=== PATIENT | female | born 1995 | race Caucasian/White ===

== ENCOUNTER 2021-04-05 11:11 | Observation (INO) ==
[2021-04-05] MEDS ORDERED: Famotidine 20 MG/2 ML VIAL IVP ONE (11:30)
[2021-04-05 12:05] LABS: Basophils % 0.2 %; Eosinophils # 0.3 K/mcL (0.0-0.6); Eosinophils % 2.6 %; Hematocrit 35.1 % (35.3-44.9); Hemoglobin 11.7 g/dL (11.5-15.4); Immature Granulocytes % 0.2 % (0-4); Lymphocytes # 1.5 K/mcL (0.6-4.6); Lymphocytes % 15.5 %; Mean Corpuscular HGB Conc 33.3 g/dL (31.6-35.5); Mean Corpuscular Hemoglobin 28.9 pg (28.0-33.3); Mean Corpuscular Volume 86.7 fL (83.0-100.0); Mean Platelet Volume 12.1 fL (9.4-12.4); Monocytes # 0.8 K/mcL (0.0-1.3); Neutrophils # 7.1 K/mcL (1.6-8.9); Platelet Count 163 K/mcL (140-400); Red Blood Count 4.05 M/mcL (3.82-4.97); Red Cell Distribution Width 13.1 % (11.5-14.5); Segmented Neutrophils % 73.5 %; White Blood Count 9.7 K/mcL (4.3-11.1)
[2021-04-05 12:14] LABS: Protein/Creatinine Ratio,Urine 0.11 mg/mg (0.00-0.20)
[2021-04-05 12:25] LABS: Alanine Aminotransferase 12 Units/L (7-52); Amylase 41 Units/L (29-103); Aspartate Amino Transferase 13 Units/L (13-39); BUN/Creatinine Ratio 12 (6-26); Blood Urea Nitrogen 7 mg/dL (6-20); Lactate Dehydrogenase 118 Units/L (140-271); Lipase 15 Units/L (11-82); Uric Acid 4.4 mg/dL (2.3-7.6); eGFR For African Americans > 60 (> 60); eGFR For Non-African Americans > 60 (> 60)
== END 2021-04-05 12:55 | disposition home or self-care (01) ==
LOC: 1NENULAB
PROVIDERS: ADMIT Advanced Practice Midwife; ATTEND Advanced Practice Midwife

== ENCOUNTER 2021-05-19 16:02 | Observation (INO) ==
[2021-05-19 18:25] LABS: Bilirubin,Urine Negative (Negative); Blood,Urine Negative (Negative); Clarity,Urine Clear (Clear); Color,Urine Light-Yellow (Yellow); Glucose,Urine (UA) Normal (Normal); Ketones,Urine Negative (Negative); Leukocyte Esterase,Urine Trace (Negative); Nitrite,Urine Negative (Negative); PH,Urine 7.5 pH Units (5.0-8.0); Protein,Urine Negative (Neg-Trace); Specific Gravity,Urine 1.018 (1.010-1.025); Urobilinogen,Urine Normal (Normal)
== END 2021-05-19 17:50 | disposition home or self-care (01) ==
LOC: 1NENULAB
PROVIDERS: ADMIT Obstetrics & Gynecology; ATTEND Obstetrics & Gynecology

== ENCOUNTER → 2021-06-22 02:50 | Observation (INO) ==
[2021-06-22 00:50] LABS: Bacteria,Urine Few per hpf (None-Few); Bilirubin,Urine Negative (Negative); Blood,Urine Negative (Negative); Clarity,Urine Clear (Clear); Color,Urine Light-Yellow (Yellow); Glucose,Urine (UA) Normal (Normal); Ketones,Urine Negative (Negative); Leukocyte Esterase,Urine Moderate (Negative); Mucus,Urine Few per lpf (None-Few); Nitrite,Urine Negative (Negative); PH,Urine 6.5 pH Units (5.0-8.0); Protein,Urine Negative (Neg-Trace); RBC,Urine 0-3 per hpf (0-3); Specific Gravity,Urine 1.022 (1.010-1.025); Squamous Epithelial Cell,Urine Few per hpf (None-Few); Urobilinogen,Urine Normal (Normal)
== END | disposition home or self-care (01) ==
LOC: 1NENULAB
PROVIDERS: ADMIT Obstetrics & Gynecology; ATTEND Obstetrics & Gynecology

== ENCOUNTER 2021-06-22 16:04 | Observation (INO) ==
[2021-06-22 16:38] LABS: Bacteria,Urine Few per hpf (None-Few); Bilirubin,Urine Negative (Negative); Blood,Urine Negative (Negative); Clarity,Urine Turbid (Clear); Color,Urine Yellow (Yellow); Glucose,Urine (UA) Normal (Normal); Ketones,Urine Negative (Negative); Leukocyte Esterase,Urine Large (Negative); Mucus,Urine Few per lpf (None-Few); Nitrite,Urine Negative (Negative); PH,Urine 7.5 pH Units (5.0-8.0); Protein,Urine 50 mg/dL (Neg-Trace); Specific Gravity,Urine 1.028 (1.010-1.025); Squamous Epithelial Cell,Urine Many per hpf (None-Few); WBC,Urine 30-50 per hpf (0-3)
[2021-06-22] MEDS ORDERED: Ringers Solution, Lactated 1,000 ML IVC ONE (17:06)
[2021-06-22] MEDS ORDERED: *HR* Nalbuphine 10 MG/ML AMPUL IV STA (17:06)
[2021-06-22 18:38] LABS: Basophils % 0.3 %; Eosinophils # 0.1 K/mcL (0.0-0.6); Eosinophils % 1.4 %; Hematocrit 34.9 % (35.3-44.9); Hemoglobin 11.5 g/dL (11.5-15.4); Immature Granulocytes % 0.4 % (0-4); Immature Platelets 13.3 % (1.1-6.1); Lymphocytes # 1.5 K/mcL (0.6-4.6); Lymphocytes % 14.7 %; Mean Corpuscular Volume 81.9 fL (83.0-100.0); Mean Platelet Volume 13.1 fL (9.4-12.4); Monocytes # 0.8 K/mcL (0.0-1.3); Monocytes % 7.9 %; Neutrophils # 7.7 K/mcL (1.6-8.9); Platelet Count 143 K/mcL (140-400); Red Blood Count 4.26 M/mcL (3.82-4.97); Red Cell Distribution Width 13.8 % (11.5-14.5); Segmented Neutrophils % 75.3 %; White Blood Count 10.2 K/mcL (4.3-11.1)
== END 2021-06-22 19:06 | disposition home or self-care (01) ==
LOC: 1NENULAB
PROVIDERS: ADMIT Advanced Practice Midwife; ATTEND Advanced Practice Midwife

== ENCOUNTER 2021-06-26 00:42 | Observation (INO) ==
[2021-06-26 01:24] LABS: Bacteria,Urine Few per hpf (None-Few); Bilirubin,Urine Negative (Negative); Blood,Urine Negative (Negative); Clarity,Urine Clear (Clear); Color,Urine Light-Yellow (Yellow); Glucose,Urine (UA) Normal (Normal); Ketones,Urine Negative (Negative); Leukocyte Esterase,Urine Large (Negative); Mucus,Urine Few per lpf (None-Few); Nitrite,Urine Negative (Negative); Protein,Urine Trace mg/dL (Neg-Trace); RBC,Urine 0-3 per hpf (0-3); Specific Gravity,Urine 1.024 (1.010-1.025); Squamous Epithelial Cell,Urine Few per hpf (None-Few); Urobilinogen,Urine Normal (Normal); WBC,Urine 30-50 per hpf (0-3)
== END 2021-06-26 01:43 | disposition home or self-care (01) ==
LOC: 1NENULAB
PROVIDERS: ADMIT Student in an Organized Health Care Education/Training Program; ATTEND Student in an Organized Health Care Education/Training Program

== ENCOUNTER → 2021-06-27 18:42 | Observation (INO) | END | disposition home or self-care (01) | LOC: 1NENULAB | PROVIDERS: ADMIT Obstetrics & Gynecology; ATTEND Obstetrics & Gynecology ==

== ENCOUNTER → 2021-06-28 23:03 | Observation (INO) | END | disposition home or self-care (01) | LOC: 1NENULAB | PROVIDERS: ADMIT Registered Nurse; ATTEND Registered Nurse ==

== ENCOUNTER 2021-07-01 14:44 | Inpatient (IN) ==
[2021-07-01 11:23] LABS: Basophils % 0.3 %; Eosinophils # 0.2 K/mcL (0.0-0.6); Eosinophils % 1.3 %; Hematocrit 34.7 % (35.3-44.9); Hemoglobin 11.5 g/dL (11.5-15.4); Immature Granulocytes % 0.5 % (0-4); Lymphocytes # 1.5 K/mcL (0.6-4.6); Lymphocytes % 10.8 %; Mean Corpuscular HGB Conc 33.1 g/dL (31.6-35.5); Mean Corpuscular Hemoglobin 27.1 pg (28.0-33.3); Mean Corpuscular Volume 81.6 fL (83.0-100.0); Mean Platelet Volume 12.6 fL (9.4-12.4); Monocytes # 1.1 K/mcL (0.0-1.3); Monocytes % 7.9 %; Neutrophils # 10.8 K/mcL (1.6-8.9); Platelet Count 131 K/mcL (140-400); Red Blood Count 4.25 M/mcL (3.82-4.97); Red Cell Distribution Width 13.7 % (11.5-14.5); Segmented Neutrophils % 79.2 %; White Blood Count 13.6 K/mcL (4.3-11.1)
[2021-07-01 11:29] LABS: Amphetamine Screen,Urine Negative ng/mL (Cutoff=1000); Barbiturate Screen,Urine Negative ng/mL (Cutoff=200); Benzodiazepines Screen,Urine Negative ng/mL (Cutoff=200); Cannabinoid Screen,Urine Negative ng/mL (Cutoff = 50); Cocaine Screen,Urine Negative ng/mL (Cutoff= 300); Opiate Screen,Urine Negative ng/mL (Cutoff=300); Phencyclidine Screen,Urine Negative ng/mL (Cutoff=25)
[~2021-07-01 14:44] MED LIST: EPHEDrine 50 MG/ML VIAL IVP PRN; Epidural Premix (fent/bupiv) 110 ML EP SCH; Famotidine 20 MG/2 ML VIAL IVP PRN; Metoclopramide 10 MG/2 ML VIAL IVP PRN; Naloxone 0.4 MG/ML INJ IVP PRN; Ondansetron 4 MG/2 ML VIAL IVP PRN; Ringers Solution, Lactated 1,000 ML ONE
[2021-07-01] MEDS ORDERED: Ringers Solution, Lactated 1,000 ML ONE (15:04)
[2021-07-01] MEDS ORDERED: Lidocaine 1% 20 ML MDV INFILT PRN (15:17)
[2021-07-01] MEDS ORDERED: *HR* Nalbuphine 10 MG/ML AMPUL IV PRN (15:17)
[2021-07-01] MEDS ORDERED: Metoclopramide 10 MG/2 ML VIAL IVP PRN (15:17)
[2021-07-01] MEDS ORDERED: Famotidine 20 MG/2 ML VIAL IVP PRN (15:17)
[2021-07-01] MEDS ORDERED: Naloxone 0.4 MG/ML INJ IVP PRN (15:17)
[2021-07-01] MEDS ORDERED: Ringers Solution, Lactated 1,000 ML IVC SCH (15:30)
[2021-07-01] MEDS ORDERED: Oxytocin 20 units/ LR 1000 mL 20 UNIT/1,000 ML BAG IVC ONE (20:40)
[2021-07-02] MEDS ORDERED: Oxytocin 20 units/ LR 1000 mL 20 UNIT/1,000 ML BAG IVC SCH (00:27)
[2021-07-02] MEDS ORDERED: Ondansetron ODT 4 MG TAB.RAPDIS SL PRN (00:27)
[2021-07-02] MEDS ORDERED: Oxytocin 20 units/ LR 1000 mL 20 UNIT/1,000 ML BAG IVC ONE (00:27)
[2021-07-02] MEDS ORDERED: Benzocaine/Menthol 56 GM AEROSOL SPRAY TP PRN (00:27)
[2021-07-02] MEDS ORDERED: Measles/Mumps/Rubella Vacc 0.5 ML VIAL SQ PRN (00:27)
[2021-07-02] MEDS ORDERED: Rho Immune Globulin 1,500 UNIT SYRINGE IM PRN (00:27)
[2021-07-02] MEDS ORDERED: Lanolin 7 G OINT...G. TP PRN (00:27)
[2021-07-02] MEDS ORDERED: Ibuprofen 600 MG TABLET PO SCH (00:56)
[2021-07-02 03:06] VITALS: O2SAT 98
[2021-07-02 06:19] LABS: Hematocrit 29.3 % (35.3-44.9); Hemoglobin 9.4 g/dL (11.5-15.4); Mean Corpuscular HGB Conc 32.1 g/dL (31.6-35.5); Mean Corpuscular Hemoglobin 26.7 pg (28.0-33.3); Mean Corpuscular Volume 83.2 fL (83.0-100.0); Red Blood Count 3.52 M/mcL (3.82-4.97); White Blood Count 13.3 K/mcL (4.3-11.1)
[2021-07-02 06:20] LABS: Basophils % 0.2 %; Eosinophils % 0.2 %; Immature Granulocytes % 0.5 % (0-4); Lymphocytes # 1.1 K/mcL (0.6-4.6); Lymphocytes % 8.1 %; Mean Platelet Volume 12.9 fL (9.4-12.4); Monocytes # 0.9 K/mcL (0.0-1.3); Monocytes % 6.4 %; Neutrophils # 11.3 K/mcL (1.6-8.9); Platelet Count 115 K/mcL (140-400); Red Cell Distribution Width 13.6 % (11.5-14.5); Segmented Neutrophils % 84.6 %
[2021-07-02] MEDS: Prenatal Vit/FA 1 EACH TABLET PO SCH (08:01)
[2021-07-02] MEDS: Acetaminophen 325 MG TABLET PO SCH ×3 (08:01→18:38)
[2021-07-02] MEDS ORDERED: NON-FORMULARY MEDICATION 1 EACH EACH (Prenatal Formula Tablet 1 TAB) PO SCH (09:00)
[2021-07-02] MEDS ORDERED: OMEPRAZOLE 10 MG PO SCH (09:00)
[2021-07-03] MEDS: Acetaminophen 325 MG TABLET PO SCH ×2 (00:42→06:29)
[2021-07-03 08:17] VITALS: BP 116/66; PULSE 60; TEMP 98.3
[2021-07-03] MEDS: Prenatal Vit/FA 1 EACH TABLET PO SCH (09:36)
== END 2021-07-03 11:59 | disposition home or self-care (01) | DRG 560 ==
LOC: 1NENULAB → 1NENUOBS 23:53
PROVIDERS: ADMIT Student in an Organized Health Care Education/Training Program; ATTEND Student in an Organized Health Care Education/Training Program